=== PATIENT | male | born 1935 | race Caucasian/White ===

== ENCOUNTER 2020-01-01 12:49 | Emergency (ER) | payer MEDICARE ==
[~2020-01-01] VITALS: Ht 160 cm; Wt 50.0 kg
[2020-01-01 13:50] LABS: BASOPHILS % (AUTO) 0.4 % (0.0-2.0); EOSINOPHILS % (AUTO) 0 % (1.0-6.0); HEMATOCRIT 21.3 % (41-53); LYMPHOCYTES % (AUTO) 13.8 % (22.0-44.0); MEAN CORPUSCULAR HEMOGLOBIN 21.2 pg (26.0-34.0); MEAN CORPUSCULAR HGB CONC 32.7 G/dL (31.0-37.0); MEAN CORPUSCULAR VOLUME 65 fL (80-100); MONOCYTES # (AUTO) 0.4 K/uL (0.1-1.0); MONOCYTES % (AUTO) 2.8 % (2.0-9.0); PLATELET COUNT (AUTO) 522 K/uL (150-450); RED BLOOD CELL COUNT(AUTO) 3.29 MIL/uL (4.50-5.90); RED CELL DISTRIBUTION WIDTH 19.9 % (11.5-14.5)
[2020-01-01 13:56] LABS: ANION GAP 6 mmol/L (8-16); CALCIUM, TOTAL 8.5 mg/dL (8.8-10.5); CARBON DIOXIDE 28 mmol/L (22-29); CHLORIDE 102 mmol/L (98-107); CREATININE 0.96 mg/dL (0.60-1.30); GLUCOSE,RANDOM 105 mg/dL (70-110); POTASSIUM 3.9 mmol/L (3.5-5.1); SODIUM SERUM 136 mmol/L (136-145); UREA NITROGEN, BLOOD 22 mg/dL (7-18)
[2020-01-01 13:58] LABS: GLOMERULAR FILTR. RATE CALC > 60 mL/min (>60)
[2020-01-01 14:02] LABS: ALANINE AMINOTRANSFERASE 15 U/L (12-78); ALBUMIN 1.9 g/dL (3.4-5.0); ALKALINE PHOSPHATASE 72 U/L (46-116); ASPARTATE AMINOTRANSFERASE 15 U/L (15-37); BILIRUBIN,TOTAL 0.2 mg/dL (0.1-1.0); LIPASE 65 U/L (73-393); TOTAL PROTEIN, SERUM 6.2 g/dL (6.4-8.2)
[2020-01-01] MEDS ORDERED: SODIUM CHLORIDE 0.9% 100 ML ONE (16:07)
[2020-01-01] MEDS ORDERED: IOVERSOL 350 MG/ML 100 ML VIAL ONE (16:07)
[2020-01-01] MEDS ORDERED: LOPERAMIDE HCL 2 MG CAPSULE PO ONE (17:15)
[2020-01-01 17:50] VITALS: BP 120/65
== END 2020-01-01 17:52 | disposition home or self-care (01) ==
LOC: EMS 13:56
DX: R19.7 Diarrhea, unspecified (principal); D64.9 Anemia, unspecified; N28.89 Other specified disorders of kidney and ureter
CPT/HCPCS: 36415; 74177; 80053; 83690; 85025; 99285; J7050; Q9967

== ENCOUNTER 2020-01-30 13:19 | Emergency (ER) | payer MEDICARE ==
[~2020-01-30] VITALS: Ht 160 cm; Wt 50.0 kg
[2020-01-30 15:31] LABS: ANION GAP 4 mmol/L (8-16); CALCIUM, TOTAL 8.2 mg/dL (8.8-10.5); CARBON DIOXIDE 33 mmol/L (22-29); CHLORIDE 105 mmol/L (98-107); CREATININE 1.06 mg/dL (0.60-1.30); GLUCOSE,RANDOM 91 mg/dL (70-110); POTASSIUM 3.5 mmol/L (3.5-5.1); SODIUM SERUM 142 mmol/L (136-145); UREA NITROGEN, BLOOD 32 mg/dL (7-18)
[2020-01-30 15:35] LABS: GLOMERULAR FILTR. RATE CALC > 60 mL/min (>60)
[2020-01-30 15:37] LABS: EOSINOPHILS % (AUTO) 0 % (1.0-6.0); HEMATOCRIT 21.6 % (41-53); LYMPHOCYTES # (AUTO) 0.7 K/uL (1.0-4.8); LYMPHOCYTES % (AUTO) 6.6 % (22.0-44.0); MEAN CORPUSCULAR HEMOGLOBIN 20.4 pg (26.0-34.0); MEAN CORPUSCULAR HGB CONC 30.5 G/dL (31.0-37.0); MEAN CORPUSCULAR VOLUME 67 fL (80-100); MONOCYTES # (AUTO) 0.4 K/uL (0.1-1.0); MONOCYTES % (AUTO) 3.6 % (2.0-9.0); NEUTROPHILS # (AUTO) 9.8 K/uL (1.8-7.7); PLATELET COUNT (AUTO) 470 K/uL (150-450); RED BLOOD CELL COUNT(AUTO) 3.22 MIL/uL (4.50-5.90); RED CELL DISTRIBUTION WIDTH 23.4 % (11.5-14.5)
[2020-01-30 15:38] LABS: ALANINE AMINOTRANSFERASE 23 U/L (12-78); ALBUMIN 1.7 g/dL (3.4-5.0); ALKALINE PHOSPHATASE 77 U/L (46-116); ASPARTATE AMINOTRANSFERASE 16 U/L (15-37); BILIRUBIN,TOTAL 0.3 mg/dL (0.1-1.0)
[2020-01-30 15:56] LABS: HEMOGLOBIN 6.6 g/dL (13.5-17.5); NEUTROPHILS % (AUTO) 89.8 % (40.0-70.0)
[2020-01-30 16:25] LABS: OCCULT BLOOD STOOL SINGLE ONLY POSITIVE (NEGATIVE)
[2020-01-30 17:20] VITALS: BP 141/90
[2020-01-30 20:34] LABS: C.DIFF GDH ANTIGEN, Stool Negative (Negative); C.DIFF TOXINS A&B, Stool Negative (Negative)
== END 2020-01-30 19:15 | disposition left against medical advice (07) ==
LOC: EMS 13:19
DX: N28.89 Other specified disorders of kidney and ureter (principal); D50.0 Iron deficiency anemia secondary to blood loss (chronic); K92.2 Gastrointestinal hemorrhage, unspecified; K62.89 Other specified diseases of anus and rectum
CPT/HCPCS: 82271; 87324; 87449